=== PATIENT | male | born 1945 | race Caucasian/White ===

== ENCOUNTER 2016-05-08 07:08 | Day surgery (SDC) | payer MEDICARE ==
[~2016-05-08 07:08] MED LIST: CEFAZOLIN SODIUM 2 GRAM PREMIX 100 ML IV ONE; IV START KIT ONE; LACTATED RINGERS 1,000 ML ONE
[2016-05-08] MEDS ORDERED: CEFAZOLIN SODIUM 2 GRAM PREMIX 100 ML IV PRN (07:15)
[2016-05-08] MEDS ORDERED: FENTANYL 250 MCG/5 ML AMP ONE (07:47)
[2016-05-08] MEDS ORDERED: MIDAZOLAM HCL 1 MG/ML 2ML VIAL ONE (07:47)
[2016-05-08] MEDS ORDERED: CEFAZOLIN SODIUM 1,000 MG VIAL ONE (08:17)
[2016-05-08] MEDS ORDERED: BUPIVACAINE 0.5% (PRES FREE) 30 ML VIAL ONE (08:18)
[2016-05-08] MEDS ORDERED: SODIUM CHLORIDE 0.9% FLUSH 10 ML ONE ×2 (08:18→12:42)
[2016-05-08] MEDS ORDERED: SPINAL PROCEDURAL TRAY 1 EACH ONE (09:33)
[2016-05-08] MEDS ORDERED: ATROPINE SULFATE 0.4 MG/1 ML VIAL IV PRN (09:40)
[2016-05-08] MEDS ORDERED: ONDANSETRON 4 MG/2ML 2 ML VIAL IV PRN ×2 (09:40→12:14)
[2016-05-08] MEDS ORDERED: LABETALOL HCL 5 MG/ML 20ML VIAL IV PRN (09:40)
[2016-05-08] MEDS ORDERED: HYDROMORPHONE HCL 1 MG/ML SYRINGE IV PRN ×2 (09:40→12:14)
[2016-05-08] MEDS ORDERED: FENTANYL 100 MCG/2 ML VIAL IV PRN (09:40)
[2016-05-08] MEDS ORDERED: NALOXONE HCL 0.4 MG/ML VIAL IV PRN (09:40)
[2016-05-08] MEDS ORDERED: LACTATED RINGERS 1,000 ML IV SCH (09:45)
[2016-05-08] MEDS ORDERED: OXYCODONE HCL 5 MG TABLET ONE (11:25)
[2016-05-08] MEDS ORDERED: OXYCODONE HCL 5 MG TABLET PO PRN ×2 (11:26→12:14)
[2016-05-08] MEDS ORDERED: KETOROLAC TROMETHAMINE 30 MG/ML 1 ML VIAL IV PRN (12:14)
[2016-05-08] MEDS ORDERED: LACTATED RINGERS 1,000 ML ONE ×3 (12:34→16:31)
[2016-05-08] MEDS ORDERED: GLYCOPYRROLATE 0.2 MG/ML 1ML VIAL ONE (12:35)
[2016-05-08] MEDS ORDERED: EPHEDRINE SULFATE 50 MG/ML 1ML VIAL ONE (12:39)
[2016-05-08] MEDS ORDERED: ONDANSETRON 4 MG/2ML 2 ML VIAL ONE (15:09)
[2016-05-08 17:10] LABS: HEMATOCRIT 36.8 % (32.0-52.0); HEMOGLOBIN 12.8 gm/l (14.0-18.0); MEAN CELL VOLUME 96.1 fl (80.0-94.0); MEAN CORPUSCULAR HEMOGLOBIN 33.4 pg (27.0-31.0); MEAN CORPUSCULAR HGB CONC 34.8 g/dl (33.0-37.0)
[2016-05-08] MEDS ORDERED: TAMSULOSIN HCL 0.4 MG CAPSULE.DR PO SCH (17:17)
[2016-05-08] MEDS ORDERED: PUMP TUBING ONE ×2 (17:28→18:53)
[2016-05-08 17:33] LABS: TROPONIN I < 0.01 ng/ml (0.0-0.06)
[2016-05-08 17:38] LABS: ALB/GLOB RATIO 1.5 (>1.0); ALBUMIN 3.6 gm/dL (3.5-5.7); CALCIUM 9.1 mg/dL (8.6-10.3); MAGNESIUM 1.8 mg/dL (1.9-2.7)
[2016-05-08 17:42] LABS: THYROID STIMULATING HORMONE 1.25 uIU/ml (0.34-5.60)
[2016-05-08 17:46] VITALS: BMI 22.1
[2016-05-08] MEDS ORDERED: MAGNESIUM SULFATE 2 G/50 ML 2 G in Premix (Water) 50 ml 1 EACH IV ONE (18:45)
--- NOTE | 2016-05-08 19:57 | CONS ---
DURGA BILLINGSLEY : 1945 DATE OF ADMISSION: May 08, 2016 CHIEF COMPLAINT: Bradycardia. HISTORY OF PRESENT ILLNESS: This is a medical consult for Dr. Hope who performed a hernia repair status post hernia revision repair under spinal anesthesia for the patient and during his postoperative care, he became bradycardic in the 20s. At the time, the patient did not feel well, a little nauseous and a little dizzy and lightheaded. He did not have any chest pain or shortness of breath with this. Currently the patient is awake, and alert in no acute distress. He is comfortable and is no longer symptomatic. His heart rate is in the 40s. He is unaware of his resting heart rate but he has had a heart rate in the 40s in the past. His blood pressure is usually in the 105/75 range at home. He is a cyclist. He rides about 25 miles three days a week and stays physically active. He currently has no other complaints at this time. REVIEW OF SYSTEMS: GENERAL: No fevers or chills. EENT: No congestion or throat pain. CARDIOVASCULAR: No chest pain or pressure: RESPIRATORY: No difficulty in breathing, shortness of breath. ABDOMEN: No nausea, vomiting, or abdominal pain. He has a hernia. MUSCULOSKELETAL: No muscle aches or pains. NEUROLOGIC: No numbness, tingling, was dizzy earlier. PAST MEDICAL HISTORY: Urinary retention. PAST SURGICAL HISTORY: Right inguinal hernia repair with revision today. MEDICATIONS: 1. Metamucil. 2. Co-enzyme Q10. 3. Flomax. 4. Red yeast rice extract. 5. Prostate Health. 6. [place] 3 with fatty acids. 7. Multivitamin. 8. Glucosamine and chondroitin. SOCIAL HISTORY: He is . 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 He drinks about five beers a week. ALLERGIES: 1. POLLEN. 2. DUST. FAMILY MEDICAL HISTORY: Mother with pacemaker. PHYSICAL EXAM: VITAL SIGNS: Temperature 98.4, heart rate 43, blood pressure 106/63, saturating 100% on room air. GENERAL: He is alert and oriented, no acute distress. Cooperative and conversant. HEENT: Normocephalic, atraumatic. No tenderness to palpation. Mucous membranes are moist. Pupils are equal, round and reactive to light. Extraocular muscles are intact. There is no scleral icterus or conjunctival injection. NECK: Supple, trachea midline. RESPIRATORY: Clear to auscultation bilaterally. No rhonchi or wheezing. CARDIOVASCULAR: Regular, bradycardic, positive S1, S2. ABDOMEN: Soft, nontender, no rebound, no guarding. EXTREMITIES: There is a bandage with serosanguineous discharge in the right inguinal region. He has an ice pack. MUSCULOSKELETAL: He is moving all extremities without difficulty NEUROLOGIC: He is alert and oriented. LABORATORIES: He has a sodium 137, potassium 4.5, chloride 100, BUN of 14, creatinine 0.8, glucose of 123, magnesium of 1.8, total bilirubin is 2.4, TSH of 1.25. White blood cell count 9.0, hemoglobin at 12.8 with hematocrit of 36.8, a platelet count of 136. ELECTROCARDIOGRAM: Electrocardiogram was obtained which shows her bradycardia with a rate of 54 beats per minute. It is a sinus rhythm. [place] interval of 101 ms, QRS duration of 84 ms, QTc of 393 ms. There are no acute ST segment elevations or depressions. ASSESSMENT: This is a 70-year-old male status post right inguinal hernia repair with spinal anesthesia presenting with bradycardia status post surgery. PLAN: 1. Bradycardia. Suspect baseline bradycardia with irritability following surgery. We will monitor on telemetry overnight. Patient is currently asymptomatic and his heart rate has rebounded to the 40s and 50s. 2. Hypomagnesemia. We will replace. 3. Anemia with a hemoglobin of 12.8. May be contributing to his symptoms. We will monitor. Could be dilutional effects as prior hemoglobin in April was 14.3. 4. BPH. We will continue his Flomax. He is being discharged home with a Prather for a few days due to the urinary retention and prior difficulties following operative procedures. Thank you, Dr. Hope, for this consult.
[2016-05-09 05:53] LABS: HEMATOCRIT 35.8 % (32.0-52.0); MEAN CELL VOLUME 98.4 fl (80.0-94.0); MEAN CORPUSCULAR HGB CONC 33.5 g/dl (33.0-37.0)
[2016-05-09 06:25] LABS: CALCIUM 8.6 mg/dL (8.6-10.3)
--- NOTE | 2016-05-09 06:33 | OP ---
Fady Dorsey [id number] DATE OF SURGERY: 05/08/2016 PREOPERATIVE DIAGNOSIS: Recurrent right inguinal hernia. POSTOPERATIVE DIAGNOSIS: Recurrent right inguinal hernia. PROCEDURE: Repair of recurrent right inguinal hernia with mesh plug. SURGEON: Dustin Hope M.D. CORRECTION OFFICER REFORMATORY: Alicia. ANESTHESIA: Boykin, Spinal. INDICATION: This is a 70-year-old male who presents for repair of a recurrent right inguinal hernia. We marked this on the skin preoperatively with him awake. We planned to do this under spinal so that he could cough and we could see the hernia protrude and the defect. DESCRIPTION: With informed consent he was taken to the operating room where a spinal anesthetic was administered. He was then laid supine. The right groin was prepped and draped in the usual fashion. Some Marcaine was infiltrated in the skin and subcutaneous tissues. An incision was made on the medial aspect of the prior scar. Electrocautery was used to divide the subcutaneous fat. We dissected down to the external ring. We identified some of the cord structures. We had him Valsalva. We identified a hernia sac. This as dissected free to the floor of the canal. It looked like the prior mesh was not completely attached down to the inguinal or Gabriel's ligament at the very inferior medial aspect. The defect measured approximately 1 cm x 3 mm. I did dissect into the sac such that I could get into the preperitoneal plane. A small mesh plug was then placed and allowed to expand. I had him Valsalva and he could not push the plug out. I did secure it to the mesh laterally with some 3-0 Vicryl. It was also secured to mesh superiorly with some 3-0 Vicryl. I secured it to the tissue overlying the pubic tubercle and along Gabriel's ligament with 3-0 Vicryl. I did not choose to open up the entire external oblique in that that area appeared intact and I would put the cord structures at significant risk by doing that. The wound was irrigated. We appeared to have adequate hemostasis. Some additional Marcaine was infiltrated. Subcutaneous tissues were brought together over this with 3-0 Vicryl. The skin was closed with running subcuticular 4-0 Monocryl. Mastisol and Steri-Strips were placed. Sterile dressings were applied. He tolerated the procedure and was taken to the recovery room in stable condition. Note was made that needle, instrument, and lap counts were reported as correct at the time of closure. JOB: [id number] CC: Dr. Ranjit Locke
--- NOTE | 2016-05-09 07:08 | PDOC43 ---
- Subjective Chief Complaint: bradycardia Patient doing well. He denies any lightheadedness, chest pain or shortness of breath. He has incisional pain. Tolerating diet. Subjective: Reports Pain Tolerable, Reports Tolerating Diet Well, Denies Shortness of Breath, Denies Cough, Denies Chest Pain, Denies Abdominal Pain, Denies Nausea, Denies Vomiting - Objective Vital Signs Temperature 98.0 F 05/09/16 03:00 Pulse Rate 47 05/09/16 03:00 Respiratory Rate 16 05/09/16 03:00 Blood Pressure 88/51 05/09/16 03:00 O2 Saturation by Pulse Oximetry 99 05/09/16 03:00 Oxygen Delivery Method Room Air Oxygen Flow Rate 0 Intake and Output 05/07/16 05/08/16 05/09/16 23:59 23:59 23:59 Intake Total 3590 650 Output Total 1950 1500 Balance 1640 -850 General: Alert, Oriented x3, Cooperative, No Acute Distress HEENT: Atraumatic, PERRLA, EOMI, Mucous membr. moist/pink Lungs: Clear to Auscultation Bilaterally Cardiovascular: Regular Rate and Rhythm, Normal S1, Normal S2, Other ( bradycardic) Abdomen: Soft, Non-Distended, Other (right inguinal incision), No Rigid, No Tenderness, No Rebounding Extremities: No Cyanosis, No Edema, No Tenderness Neurological: Normal Speech Psych/Mental Status: Normal Mood Laboratory 05/09/16 05:00 05/09/16 05:00 05/09/16 05/08/16 05:00 17:03 RBC 3.64 L 3.83 L MCV 98.4 H 96.1 H MCH 33.0 H 33.4 H Estimated GFR 96 H 96 H Magnesium 1.8 L Total Bilirubin 2.4 H Total Protein 6.0 L Current Medications: Current meds reviewed in EMR. - Problems: Assessment/Plan (1) Recurrent inguinal hernia of right side without obstruction or gangrene Status: AcuteAssessment/Plan: mild pain at incision site. Managed per surgery recommendations (2) Urinary retention Status: ChronicAssessment/Plan: Patient with known urinary retention. Plan is to go home with san[place] and remove in 2 days (3) Bradycardia Status: AcuteAssessment/Plan: Resting heart rate in 40-50's at home with BP in the 100's. He had an episode of a heart rate in the 20's post-op. Suspect response from surgery, possible medications following surgery. Patient has remained asymptomatic Disposition: home, ok to [place] from medical standpoint
[2016-05-09 07:35] VITALS: BP 84/44
--- NOTE | 2016-05-09 08:02 | PDOC43 ---
- Subjective Subjective: Reports Pain Tolerable, Denies Nausea - Objective Vital Signs Temperature 98.2 F 05/09/16 07:34 Pulse Rate 48 05/09/16 07:34 Respiratory Rate 15 05/09/16 07:34 Blood Pressure 84/44 05/09/16 07:34 O2 Saturation by Pulse Oximetry 100 05/09/16 07:34 Oxygen Delivery Method Room Air Oxygen Flow Rate 0 Laboratory 05/09/16 05:00 05/09/16 05:00 05/09/16 05/08/16 05:00 17:03 RBC 3.64 L 3.83 L MCV 98.4 H 96.1 H MCH 33.0 H 33.4 H Estimated GFR 96 H 96 H Magnesium 1.8 L Total Bilirubin 2.4 H Total Protein 6.0 L Active Medication Orders Category Date Time Status Hydromorphone HCl [Dilaudid] Med 05/08/16 12:14 Active 0.5 - 1 mg IV Q1H PRN Ketorolac Tromethamine [Toradol] Med 05/08/16 12:14 Active 30 mg IV Q6H PRN Ondansetron 4 mg/2ml Vial [Zofran] Med 05/08/16 12:14 Active 4 mg IV Q6H PRN Oxycodone HCl [Roxicodone] Med 05/08/16 12:14 Active 5 - 10 mg PO Q4H PRN Sodium Chloride 0.9% Flush [Normal Saline 10ml Flush] Med 05/09/16 07:55 Active 10 ml IV PRN PRN Sodium Chloride 0.9% Flush [Normal Saline 10ml Flush] Med 05/09/16 09:00 Active 10 ml IV Q8HR Tamsulosin HCl [Flomax] Med 05/08/16 17:17 Active 0.4 mg PO 1700 Intake and Output 05/08/16 05/09/16 05/10/16 06:59 06:59 06:59 Intake Total 4240 Output Total 3450 Balance 790 General: Alert, Oriented x3 Abdomen: Soft Psych/Mental Status: Normal Affect - Assessment/ Plan (1) Recurrent inguinal hernia of right side without obstruction or gangrene Status: AcuteAssessment/ Plan: Doing OK from surgical standpoint. (2) Urinary retention Status: ChronicAssessment/ Plan: DC s[place]ana this am. Home if able to urinate. (3) Bradycardia Status: AcuteAssessment/ Plan: Asymptomatic. Defer to medical judgment on any further work-up.
--- NOTE | 2016-05-10 12:14 | DS ---
DURGA BILLINGSLEY [facility] [id number] DATE OF ADMISSION: May 08, 2016 DATE OF DISCHARGE: May 09, 2016 SURGERY SERVICE: Dustin Hope M.D. HISTORY: Durga Billingsley is a 70-year-old male who has a recurrent right inguinal hernia who presents for elective repair. PAST MEDICAL HISTORY: 1. Hyperlipidemia. 2. History of colon polyps. 3. Benign prostatic hypertrophy. PAST SURGICAL HISTORY: 1. Bilateral inguinal hernia repair, 2006. 2. Recurrent right inguinal repair, 2016. CURRENT MEDICATIONS: 1. Continue-Enzyme Q. 2. Fish oil. 3. Glucosamine chondroitin. 4. Prostate health capsule. 5. [place]. 6. Multivitamin. 7. Red yeast rice. 8. Tamsulosin. SOCIAL HISTORY: He is a nonsmoker. HOSPITAL COURSE: He underwent repair of a recurrent right inguinal hernia under spinal anesthesia. He was hemodynamically stable during the procedure. He was taken to the recovery room and then to the day surgery area. In the day surgery area he did get somewhat nauseous and dizzy. He felt lightheaded. His heart rate had been in the high 40s preoperatively and dropped into the 20s. He was treated by anesthesia with some glycopyrrolate. His heart rate responded to this. He did not have any chest pain. He denied shortness of breath. After this episode, he did still have some blood pressures that were marginal with a persistently bradycardic rate. It was decided that we would keep him overnight. He was admitted to the intermediate care status with telemetry and hospitalist consultation was obtained. Patient was seen by Dr. Whittington. She felt no additional medications for the bradycardia were needed. Hypomagnesemia was identified and was replaced. He had a Prather catheter placed during the operation and it was intended that he go home with this because of a prior history of urinary retention. We decided to remove the Prather on the morning after surgery. He tolerated this well and was able to urinate without retention the morning following surgery. His incisional pain was tolerable. He was without nausea. His pulse was 48. Blood pressure did go as low as 84/44, but he was asymptomatic with this. In the absence of symptoms, it was felt that he was stable for discharge. He is to discharge home on his usual home medications. We will have him follow up with his primary care doctor for his bradycardia. FINAL DIAGNOSES: 1. Recurrent right inguinal hernia. 2. Postoperative bradycardia with hypotension. PROCEDURES PERFORMED: Recurrent right inguinal hernia repair with mesh. INSTRUCTIONS ON DISCHARGE: 1. He is to resume his usual home medication. 2. He was given a prescription for oxycodone to use as needed. 3. He is to refrain from lifting greater than ten pounds. 4. He may shower. 5. He can climb stairs. 6. He can have a regular diet. 7. He will follow up with me in the office within a week.
== END 2016-05-09 10:20 ==
LOC: SDC 07:08 → ICU 17:00 → UNDOADMIN 17:02 → SDC 05-09 10:20 → UNDODISIN 05-09 10:20
PROVIDERS: ATTEND Surgery
PROC: 0YU50JZ Supplement Right Inguinal Region with Synthetic Substitute, Open Approach (ICD-10-PCS; principal; 2016-05-08)
PROC: 0YJ54ZZ Inspection of Right Inguinal Region, Percutaneous Endoscopic Approach (ICD-10-PCS; 2016-05-08)
DX: K40.90 Unilateral inguinal hernia, without obstruction or gangrene, not specified as recurrent (principal); E78.5 Hyperlipidemia, unspecified; R00.1 Bradycardia, unspecified; E83.42 Hypomagnesemia; D64.9 Anemia, unspecified; N40.1 Benign prostatic hyperplasia with lower urinary tract symptoms; R33.8 Other retention of urine
CPT/HCPCS: 85027 ×2; 80048; 80053; 83735 ×2; 84100; 84443; 84484; 93005; 49520; C1781; J0690 ×2; J3010; A9270; J2250; J2405; J7120 ×4; J3475